=== PATIENT | female | born 1935 | race Caucasian/White ===

== ENCOUNTER → 2016-09-02 | Outpatient (CLI) | payer MEDICARE, BC ==
[~2016-09-02] MED LIST: ALLEGRA180 MG PO; ALLEGRA60 MG PO; AMLO5TAB PO; APRESOLINE 50MG50 MG PO; CARVEDILOL25 MG PO; CENTRUM SILVER1 TAB PO; CLOBETASOL PROP0.052 TP; COREG CR40 MG PO; CYCLOBENZAPRINE10 M1 OR; FAMOTIDINE 20MG20 MG PO; FLEXERIL10 MG PO; HYDROCODON-ACETAMINO PO; HYDROCODONE-APA1 TA2 PO; LEVAQUIN500 MG PO; LEVOTHYROXIN0.075 M3 PO; LOSARTAN POTASS50 MG PO; MIRALAX(PO17 GM/1 PA PO; MOTION SICKNESS25 M1 PO; MOTRIN800 MG PO; NITROFURANTOIN100 M6 PO; ONDANSETRON 4MG4 M1 PO; PREDNISONE 10MG10 MG PO; SANCUSO3.1 MG/24 TD; SPIRONOLACTONE25 M1 PO; SPIRONOLACTONE50 MG PO; TORSEMIDE10 MG PO; VICODIN 5/500 T1 TAB PO; VITAMIN C500 M1 PO; ZETIA10 MG PO; ZINC CHELATED PO; ZINC30 MG PO
[2016-09-02 10:20] LABS: HEMOGLOBIN 13.3 g/dL (12.2-16.2); LYMPH # 0.8 K/mm3 (0.7-4.5); LYMPH % 19.6 % (10-50.0)
[2016-09-02 12:39] LABS: BUN 25 mg/dL (7-18)
[2016-09-02 12:44] LABS: GFR (ESTIMATED) 53 ML/MIN (59-)
== END ==
LOC: LAB 10:09
PROVIDERS: Nurse Practitioner Family
DX: D69.6 Thrombocytopenia, unspecified (principal); I10 Essential (primary) hypertension

== ENCOUNTER → 2016-11-10 | Outpatient (CLI) | payer MEDICARE, BC ==
[2016-11-10 08:49] LABS: HEMOGLOBIN 12.1 g/dL (12.2-16.2); LYMPH # 0.4 K/mm3 (0.7-4.5); LYMPH % 17.7 % (10-50.0)
[2016-11-10 10:33] LABS: BUN 24 mg/dL (7-18)
[2016-11-10 10:36] LABS: GFR (ESTIMATED) 53 ML/MIN (59-)
[2016-11-10 11:17] LABS: NEUTROPHILS 72 % (42-76)
== END ==
LOC: LAB 08:30
PROVIDERS: Nurse Practitioner Family
DX: I10 Essential (primary) hypertension (principal); D69.6 Thrombocytopenia, unspecified; E03.9 Hypothyroidism, unspecified

== ENCOUNTER → 2017-03-07 | Outpatient (CLI) | payer MEDICARE, BC ==
--- NOTE | 2017-03-07 09:40 | RADIOLOGY REPORT PS360 ---
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 The medullary stem appears normal and is no evidence of loosening. The iliac bones and pubic bones and left hip appear intact, there is minor asymmetrical joint space narrowing of the left hip joint. There are metallic brackets and pedicle screws fusing L3 and L4. 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 There have been previous laminectomies of L3, L4 and L5. IMPRESSION: Stable appearance of right hip prosthesis
--- NOTE | 2017-03-07 09:40 | RADIOLOGY REPORT PS360 ---
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 The medullary stem appears normal and is no evidence of loosening. The iliac bones and pubic bones and left hip appear intact, there is minor asymmetrical joint space narrowing of the left hip joint. There are metallic brackets and pedicle screws fusing L3 and L4. 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 There have been previous laminectomies of L3, L4 and L5. IMPRESSION: Stable appearance of right hip prosthesis
== END ==
LOC: RAD 08:23
DX: Z96.641 Presence of right artificial hip joint (principal)

== ENCOUNTER → 2017-05-22 | Outpatient (CLI) | payer MEDICARE, BC ==
[2017-05-22 08:46] LABS: HEMOGLOBIN 12.3 g/dL (12.2-16.2); LYMPH # 0.6 K/mm3 (0.7-4.5); LYMPH % 18.3 % (10-50.0)
[2017-05-22 10:47] LABS: BUN 21 mg/dL (7-18)
[2017-05-22 10:54] LABS: GFR (ESTIMATED) 60 ML/MIN (59-)
== END ==
LOC: LAB 08:30
PROVIDERS: Nurse Practitioner Family
DX: I10 Essential (primary) hypertension (principal); D69.59 Other secondary thrombocytopenia; E03.9 Hypothyroidism, unspecified

== ENCOUNTER → 2017-05-25 | Outpatient (CLI) | payer MEDICARE, BC ==
--- NOTE | 2017-05-25 15:23 | RADIOLOGY REPORT PS360 ---
PROCEDURE: 2-D M-mode and color Doppler study INDICATIONS FOR THE TEST: Chest pain COPD Heart Murmur Tobacco Smoking Palpitations Fatigue Syncope EdemaX HypertensionXDiabetes Mellitus Rheumatic Fever SOB MAN Obesity HyperlipidemiaX Family History HD Additional History PATIENT INFORMATION HEIGHT: 65 WEIGHT:180 GENDER: Female B/P:110/80 2-D/M-MODE INTERPRETATION: 2-D MEASUREMENTS OBSERVED VALUES IN CMS Right Ventricular Dimension (RVDd) 1.7 Interventricular Septum (Thickness)(IVsd) 1.2 Left Ventricular Internal Dimensions(LVIDd) 5.8 Left Ventricular Posterior Wall (Thickness)(LVPWd) 1.0 Aortic Root 3.3 Aortic Cusp Separation 1.9 Left Atrial Dimensions (LAD) 3.9 2D 1. Left atrium is qualitatively mildly enlarged, left ventricle is normal size, there is mild concentric left ventricular hypertrophy present, visually estimated ejection fraction of 55% with no obvious regional wall motion abnormality. 2. The right atrium and right ventricle are normal size and contractility. 3. The aortic valve is thickened and calcified, leaflet continue to display mobility. 4. The mitral and tricuspid valve leaflets are minimally thickened. 5. The pulmonic valve is poorly visualized. 6. No significant pericardial effusion noted. DOPPLER INTERROGATION: Doppler interrogation of the aortic, mitral and tricuspid valvular presence of mild mitral and tricuspid regurgitation, calculated right ventricular systolic pressure is 43 mmHg consistent with moderate pulmonary hypertension, tissue Doppler is indicated of raised left atrial pressure. CONCLUSION: 1. Mildly enlarged left atrium, normal left ventricular size, mild concentric left ventricular hypertrophy, visually estimated ejection fraction 55% with no obvious regional wall motion abnormality, tissue Doppler is indicated of raised left atrial pressure. 2. Thickened and calcified aortic valve without significant aortic stenosis aortic insufficiency. 3. Mild mitral and tricuspid regurgitation, calculated right ventricular systolic pressure is 43 mmHg consistent with moderate pulmonary hypertension. 4. No significant pericardial effusion noted.
== END ==
LOC: RT 11:54
DX: I10 Essential (primary) hypertension (principal); I73.9 Peripheral vascular disease, unspecified; R60.1 Generalized edema

== ENCOUNTER → 2017-07-10 | Outpatient (CLI) | payer MEDICARE, BC ==
--- NOTE | 2017-07-10 12:52 | RADIOLOGY REPORT PS360 ---
HIP LT 2-3V W/PELVIS IF PERFOR HISTORY: LEFT HIP PAIN ORDERING PHYSICIAN: Dagmar Alvarez APRN PATIENT AGE: 82 years COMPARISON: 03/07/2017 FINDINGS: Mild osteoarthritic changes are present at the hip joint. No fracture or dislocation. No lytic or blastic change. 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
== END ==
LOC: RAD 10:48
DX: M25.552 Pain in left hip (principal)

== ENCOUNTER → 2017-08-11 | Outpatient (CLI) | payer MEDICARE, BC ==
[2017-08-11 08:52] LABS: HEMOGLOBIN 12.5 g/dL (12.2-16.2); LYMPH # 0.6 K/mm3 (0.7-4.5); LYMPH % 19.4 % (10-50.0)
[2017-08-11 09:54] LABS: NEUTROPHILS 68 % (42-76)
[2017-08-11 13:50] LABS: BUN 28 mg/dL (7-18)
[2017-08-11 13:54] LABS: GFR (ESTIMATED) 43 ML/MIN (59-)
== END ==
LOC: LAB 08:34
PROVIDERS: Nurse Practitioner Family
DX: E78.5 Hyperlipidemia, unspecified (principal); I10 Essential (primary) hypertension; D69.6 Thrombocytopenia, unspecified; E03.9 Hypothyroidism, unspecified